=== PATIENT | male | born 1975 | race Caucasian/White ===

== ENCOUNTER 2018-02-21 01:37 | Emergency (ER) | payer SELFPAY ==
[~2018-02-21] VITALS: Ht 177.8 cm; Wt 98.8 kg
[~2018-02-21 01:37] MED LIST: ABILIFY10 MG PO; ABILIFY5 MG PO; ADVAIR 250/501 DISK; ALPRAZOLAM0.25 M2 PO; ARIPIPRAZOLE5 MG PO; BUSPAR10 MG PO; EFFEXOR PO; FLUOXETINE HCL20 MG PO; HYDROCHLOROTHIA25 MG PO; HYDROXYZINE PAM25 MG PO; KLONOPIN1 MG PO; LISINOPRIL-HCT1 EAC3 PO; LISINOPRIL10 MG PO; LISINOPRIL20 MG PO; LISINOPRIL40 MG PO; LOMOTIL TABLET1 EACH PO; MIGRAINE RELIE1 EAC2 PO; MOBIC7.5 MG PO; PAROXETINE HCL25 MG; PAROXETINE HCL25 MG PO; PAROXETINE HCL30 MG PO; PAROXETINE HCL40 MG PO; PAXIL CR37.5 MG PO; PROAIR HFA8.5 GM IH; PROMETHAZINE HC25 M1 PO; VENLAFAXINE225 MG PO; VENTOLIN HFA18 GM; VENTOLIN HFA18 GM IH; XANAX0.5 MG PO; ZOLPIDEM TARTRAT5 MG PO
[2018-02-21 02:43] LABS: HEMATOCRIT 41.1 % (38.0-50.0); HEMOGLOBIN 14.2 G/DL (12.5-16.6); MCH 29.4 PG (29.0-34.0); MCHC 34.5 G/DL (30.0-36.0); MCV 85.1 FL (86-99); PLATELET COUNT 214 K/uL (156-360); RBC DIS.WIDTH-CV 12.8 % (11.8-14.6); RBC DIS.WIDTH-SD 39.4 % (39-53); RED BLOOD COUNT 4.83 M/uL (4.00-5.50); WHITE BLOOD COUNT 9.5 K/uL (4.1-10.2)
[2018-02-21 02:54] LABS: ALBUMIN 4.1 g/dL (3.2-4.8); CHLORIDE 103 mEq/L (99-109); POTASSIUM 3.5 mEq/L (3.7-5.4); SODIUM 138 mEq/L (136-147)
[2018-02-21 02:57] LABS: GLUCOSE 154 mg/dL (70-99); TOTAL PROTEIN 6.4 g/dL (6.4-8.3)
[2018-02-21 02:59] LABS: TOTAL BILIRUBIN 0.5 mg/dL (0.0-1.0)
[2018-02-21 03:00] LABS: ALKALINE PHOSPHATASE 65 IU/L (3-129); GFR ESTIMATE (CALCULATED) > 59 mL/min/ (58.99-99999)
[2018-02-21 03:02] LABS: AST (GOT) 14 IU/L (2-34); UREA NITROGEN (BUN) 13 mg/dL (9-23)
[2018-02-21 03:03] LABS: ALT (GPT) 20 IU/L (3-49)
[2018-02-21 03:04] LABS: LIPASE 22 U/L (1.0-51.0)
[2018-02-21 03:05] LABS: TROP-I INTERPRETATION NEGATIVE; TROPONIN-I < 0.01 ng/mL (0.0-0.30)
[2018-02-21 04:51] VITALS: BP 172/86
== END 2018-02-21 04:53 | disposition home or self-care (01) ==
LOC: EME 01:37
PROVIDERS: Emergency Medicine
DX: I10 Essential (primary) hypertension (principal); J45.909 Unspecified asthma, uncomplicated; G43.909 Migraine, unspecified, not intractable, without status migrainosus; F41.9 Anxiety disorder, unspecified; Z87.19 Personal history of other diseases of the digestive system; Z90.49 Acquired absence of other specified parts of digestive tract; Z91.010 Allergy to peanuts
CPT/HCPCS: 70450; 80053; 83690; 84484; 85027; 93005; 99281; 99284; J0780; J1200; J7030